=== PATIENT | female | born 1975 | race Caucasian/White ===

== ENCOUNTER 2020-09-05 11:33 | Emergency (ER) | payer BC, SELFPAY ==
--- NOTE | 2020-09-05 11:38 | PC.NURSE ---
V.O. from Dr. daily 4mg IV Morphine.
[2020-09-05 11:42] VITALS: BP 188/83; PULSE 88; RESP 18; TEMP 36.9; O2SAT 98; BMI 62.4
--- NOTE | 2020-09-05 11:47 | DI.RAD.S_ITS ---
PROCEDURE: XR CHEST 1V INDICATIONS: chest pain TECHNIQUE: One view of the chest was acquired. COMPARISON: [facility], CR, XR CHEST 2VW, 10/06/2015, 20:23. FINDINGS: Surgical changes and devices: None. Lungs and pleura: Lungs are clear. No pleural effusions or pneumothorax. Mediastinum: Mediastinal contours appear normal. Heart size is normal. Bones and chest wall: No suspicious bony lesions. Overlying soft tissues appear unremarkable. IMPRESSION: No acute cardiopulmonary disease. Dictated by: Katya Jacobs M.D. on 09/05/2020 at 12:03 Approved by: Katya Jacobs M.D. on 09/05/2020 at 12:04
--- NOTE | 2020-09-05 11:49 | ED.CHESTPAIN ---
HPI - Chest Pain General Chief Complaint: Chest Pain Stated Complaint: Sudden LUQ abd pain 15 minutes ago Time Seen by Provider: 09/05/20 11:49 Source: EMS Mode of arrival: EMS Limitations: no limitations History of Present Illness HPI narrative: Otherwise healthy 45-year-old woman presents with acute mid epigastric to right upper quadrant severe stabbing pain radiating through to her back and then across the entire upper abdomen and up into her chest and right shoulder. This was not associated with dyspnea, diaphoresis or nausea. She had her gallbladder approximately 10 years ago but states this does feel somewhat similar. She is not currently on any prescription medications. Medics gave her Zofran and 200 mcg of fentanyl with no relief of pain. 4 mg of IV morphine did bring the pain down to a tolerable level. She describes no recent fevers, cough, diarrhea, headaches. Related Data Previous Rx's Medication Instructions Recorded oxycodone-acetaminophen 1 tab PO Q6H PRN #14 tab 09/05/20 Allergies Allergy/AdvReac Type Severity Reaction Status Date / Time No Known Drug Allergies Allergy Verified 09/05/20 11:58 Review of Systems Review of Systems Narrative: Remainder of review of systems including constitutional, ENT, cardiovascular, respiratory, GI, , musculoskeletal, skin, neurologic and psychiatric systems reviewed and are unremarkable except as noted in HPI. Patient History Surgical History History of cholecystectomy Social History Smoking Status: Never smoker Smoking Status: Never smoker alcohol intake frequency: holidays/special occasions only Substance Use Type: does not use Exam Narrative Exam Narrative: General: Healthy appearing, in no acute distress. Able to give a complete and coherent history. Well-nourished well-developed HEENT: Moist mucous membranes, normal sclera with reactive pupils, Neck: No JVD, supple Respiratory: Lungs are clear to auscultation, no wheezing no rales no rhonchi. Full and symmetrical air movement Cardiac: Regular rate and rhythm no murmurs no bruits Abdomen: Soft, tender in the mid epigastrium without rebound or guarding, good bowel tones, no flank pain Skin: Warm and dry, no rashes Neurologic: Grossly neurologically intact with no obvious asymmetries or abnormalities Extremities: No trauma, well perfused Psych: Cooperative, appropriate insight and affect Initial Vital Signs Initial Vital Signs: Vital Signs Temperature 98.5 F 09/05/20 11:42 Pulse Rate 88 09/05/20 11:42 Respiratory Rate 18 09/05/20 11:42 Blood Pressure 188/83 H 09/05/20 11:42 Pulse Oximetry 98 09/05/20 11:42 Course Orders Ordered: ED Orders 09/05/20 11:34 Complete Blood Count AUTO DIFF Stat Comprehensive Metabolic Panel Stat Lipase Stat Partial Thromboplastin Time Stat Prothrombin Time INR Stat Troponin & CK Cardiac Panel Stat 09/05/20 11:47 XR chest 1V Stat EKG-12 Lead Stat 09/05/20 11:56 Test Urine Stat 09/05/20 12:14 CT abdomen pelvis w con Stat Discontinued Medications Al Hydrox/Mg Hydrox/Simethicone 20 ml/ Lidocaine HCl 15 ml 0 ml PO NOW ONE Stop: 09/05/20 12:10 Last Admin: 09/05/20 12:18 Dose: 35 ml Documented by: EL Morphine Sulfate (Morphine 4 Mg/Ml Inj) 4 mg IV NOW ONE Stop: 09/05/20 13:28 Last Admin: 09/05/20 13:30 Dose: 4 mg Documented by: EL Morphine Sulfate (Morphine 4 Mg/Ml Inj) 4 mg IV NOW ONE Stop: 09/05/20 13:31 Last Admin: 09/05/20 13:39 Dose: Not Given Documented by: EL Oxycodone/Acetaminophen (Oxycodone/Acetaminophen 5/325 Tablet) 1 tab PO NOW ONE Stop: 09/05/20 15:18 Pantoprazole Sodium (Pantoprazole 20 Mg Tablet) 20 mg PO NOW ONE Stop: 09/05/20 15:18 Vital Signs Vital signs: Vital Signs - 8 hr 09/05/20 11:42 09/05/20 13:15 09/05/20 14:48 Temperature 98.5 F Pulse Rate 88 64 65 Respiratory Rate 18 24 16 Blood Pressure 188/83 H 119/67 120/63 Pulse Oximetry 98 100 99 MDM - Chest Pain Medical Records Data Attestation: I reviewed the patient's medical records. Lab Data Attestation: I reviewed the patient's lab results. Result diagrams: 09/05/20 11:34 09/05/20 11:34 Labs: Lab Results 09/05/20 09/05/20 09/05/20 Range/Units 11:34 11:34 11:34 WBC 10.4 (4.5-11.0) X10^3/uL RBC 4.53 (4.0-5.2) X10^6/uL Hgb 13.8 (12.0-16.0) g/dL Hct 40.4 (36-46) % MCV 89.3 (80-100) fL MCH 30.6 (26-34) PG MCHC 34.2 (30-36) % RDW 12.8 (11.6-14.8) % Plt Count 343 (150-400) X10^3/uL Neut % (Auto) 66.8 (50-75) % Lymph % (Auto) 26.6 (25-40) % [place] % (Auto) 5.2 (3-14) % Eos % (Auto) 0.7 L (2-4) % Baso % (Auto) 0.7 (0-2) % Neut # (Auto) 6900 (8255-7971) /uL Lymph # (Auto) 2800 (1012-4458) /uL [place] # (Auto) 500 (0-900) /uL Eos # (Auto) 100 (0-450) /uL Baso # (Auto) 100 (0-100) /uL PT 12.4 (10.1-12.7) SECONDS INR 1.1 (0.9-1.3) APTT 33 (26.4-36.2) SECONDS Sodium 137 (137-145) mmol/L Potassium 4.3 (3.4-5.1) mmol/L Chloride 106 (98-107) mmol/L Carbon Dioxide 27 (22-32) mmol/L BUN 10 (7-17) mg/dL Creatinine 0.49 L (0.52-1.04) mg/dL Estimated GFR > 60.0 (>60) mL/min BUN/Creatinine Ratio 20.4 (6-22) Glucose 102 H (70-100) mg/dL Calcium 8.8 (8.4-10.2) mg/dL Total Bilirubin 0.5 (0.2-1.3) mg/dL AST 107 H (14-36) IU/L ALT 49 H (<35) IU/L Alkaline Phosphatase 76 (38-126) U/L Total Creatine Kinase 54 (30-135) U/L CK-MB (CK-2) TNP CK-MB (CK-2) Rel Index TNP Troponin I < 0.012 (0.01-0.034) ng/mL Total Protein 6.8 (6.3-8.2) g/dL Albumin 4.1 (3.5-5.0) g/dL Globulin 2.7 (1.7-4.1) g/dL Albumin/Globulin Ratio 1.5 (1.0-2.8) Lipase 139 (23-300) U/L Urine Test (Negative) 09/05/20 Range/Units 11:56 WBC (4.5-11.0) X10^3/uL RBC (4.0-5.2) X10^6/uL Hgb (12.0-16.0) g/dL Hct (36-46) % MCV (80-100) fL MCH (26-34) PG MCHC (30-36) % RDW (11.6-14.8) % Plt Count (150-400) X10^3/uL Neut % (Auto) (50-75) % Lymph % (Auto) (25-40) % [place] % (Auto) (3-14) % Eos % (Auto) (2-4) % Baso % (Auto) (0-2) % Neut # (Auto) (6862-9887) /uL Lymph # (Auto) (1418-2701) /uL [place] # (Auto) (0-900) /uL Eos # (Auto) (0-450) /uL Baso # (Auto) (0-100) /uL PT (10.1-12.7) SECONDS INR (0.9-1.3) APTT (26.4-36.2) SECONDS Sodium (137-145) mmol/L Potassium (3.4-5.1) mmol/L Chloride (98-107) mmol/L Carbon Dioxide (22-32) mmol/L BUN (7-17) mg/dL Creatinine (0.52-1.04) mg/dL Estimated GFR (>60) mL/min BUN/Creatinine Ratio (6-22) Glucose (70-100) mg/dL Calcium (8.4-10.2) mg/dL Total Bilirubin (0.2-1.3) mg/dL AST (14-36) IU/L ALT (<35) IU/L Alkaline Phosphatase (38-126) U/L Total Creatine Kinase (30-135) U/L CK-MB (CK-2) CK-MB (CK-2) Rel Index Troponin I (0.01-0.034) ng/mL Total Protein (6.3-8.2) g/dL Albumin (3.5-5.0) g/dL Globulin (1.7-4.1) g/dL Albumin/Globulin Ratio (1.0-2.8) Lipase (23-300) U/L Urine Test Negative (Negative) Urine Dip Bedside Urine Glucose Negative Bedside Urine Bilirubin - Negative Bedside Urine Ketone - Negative Urine Specific [place] 1.020 Bedside Urine Occult Blood +/- Bedside Urine pH 6.5 Bedside Urine Protein - Negative Bedside Urine Urobilinogen - Negative Bedside Urine Nitrite - Negative Bedside Urine Leukocytes - Negative Esterase Imaging Data CT scan - abdomen/pelvis: Radiologist's Impression: FINDINGS: Image quality: Excellent. ABDOMEN: Lung bases: Lung bases are clear. Heart size is normal. Solid organs: Liver is normal in size and enhancement. There is mild periportal edema. Gallbladder is surgically absent.. Biliary system is non dilated. Pancreas enhances normally. Spleen is normal in size and enhancement. No adrenal nodules. Kidneys demonstrate normal size and enhancement, without hydronephrosis. Peritoneum and bowel: Bowel loops demonstrate normal wall thickness and caliber. No free fluid or air. Nodes and vessels: No retroperitoneal or mesenteric adenopathy by size criteria. Aorta and inferior vena cava are normal in size. There are small perisplenic varicosities with a spontaneous splenorenal shunt. Miscellaneous: No ventral hernias. PELVIS: Genitourinary: Bladder wall thickness is normal. Miscellaneous: No inguinal hernias or adenopathy. Bones: No suspicious bony lesions. No vertebral body compression fractures. IMPRESSION: 1. Remote cholecystectomy. 2. Periportal edema, a nonspecific finding. 3. Small left upper quadrant perisplenic varicosities, with spontaneous splenorenal shunt. 4. No other significant findings. Dictated by: Renard Hunter M.D. on 09/05/2020 at 13:44 ECG Data Attestation: I personally reviewed and interpreted this ECG as follows: Interpretation: Normal EKG with sinus rhythm at a rate of 72 Normal axis, normal intervals No ischemic changes MDM Narrative Medical decision making narrative: 45-year-old woman with the acute onset severe epigastric pain radiating through to her back with essentially normal workup. Chest x-ray is unremarkable. CT scan does not suggest acute findings and labs are reassuring. GI cocktail was not effective for her. Most likely diagnosis at this point is still stomach related issues given the normal lipase and normal pancreas on CT. Will give her a brief course of narcotics to use for the next 1-2 days and have her start a proton pump inhibitor and follow-up with her primary care physician. She is safe for home discharge Discharge Plan Departure Patient Disposition: Home Clinical Impression: Acute epigastric pain Instructions: DI for Gastric Ulcer Activity Restrictions/Additional Instructions: Thank you for coming in today. On your workup I did not find any life-threatening issues. Specifically I found no signs of infection, series bleeding, kidney or liver failure. Your CT scan did not show any recurrent issues with your gallbladder area or gallstones, you did not have pancreatitis, you do not have a collection of fluid or abscess in your belly and there was no free air to suggest some part of your bowel leaking to cause problems. The most likely explanation at this point given the negative workup so far is either gastritis (irritation to the stomach lining) or an actual stomach ulcer. I am going to give you a prescription for pain medication to use for the next couple of days for the severe pain. I am also going to suggest that you start Prilosec 20 mg a day for the next 4 weeks to allow your stomach to be and heal itself. Please follow-up with a primary care provider with in the next 3-4 weeks. If your pain is not improving the next step in your workup would be to go to a door operator for an upper endoscopy, a scope to look into your stomach specifically. If you have fevers, increasing pain, vomiting blood, black or bloody stools you do need to return to the emergency department for further evaluation Prescriptions: New oxycodone-acetaminophen 5-325 mg tablet 1 tab PO Q6H PRN (Reason: pain) Qty: 14 RF: 0
[2020-09-05 11:57] LABS: Add Manual Diff / Slide Review NO; Basophils Absolute Auto 100 /uL (0-100); Basophils Percent Auto 0.7 % (0-2); Eosinophils Absolute Auto 100 /uL (0-450); Eosinophils Percent Auto 0.7 % (2-4); Hematocrit 40.4 % (36-46); Hemoglobin 13.8 g/dL (12.0-16.0); Lymphocytes Absolute Auto 2800 /uL (1100-4500); Lymphocytes Percent Auto 26.6 % (25-40); Mean Corpuscular HGB Conc 34.2 % (30-36); Mean Corpuscular Hemoglobin 30.6 PG (26-34); Mean Corpuscular Volume 89.3 fL (80-100); Monocytes Absolute Auto 500 /uL (0-900); Monocytes Percent Auto 5.2 % (3-14); Neutrophils Absolute Auto 6900 /uL (1500-7000); Neutrophils Percent Auto 66.8 % (50-75); Platelet Count 343 X10^3/uL (150-400); Red Blood Cell Count 4.53 X10^6/uL (4.0-5.2); Red Cell Distribution Width 12.8 % (11.6-14.8); White Blood Cell Count 10.4 X10^3/uL (4.5-11.0)
[2020-09-05] MEDS: MORPHINE 4 MG/ML INJ (11:59)
[2020-09-05 12:14] LABS: Creatine Kinase 54 U/L (30-135); HEMOLYSIS 42 (0-50)
--- NOTE | 2020-09-05 12:14 | DI.CT.S_ITS ---
PROCEDURE: CT ABDOMEN PELVIS W CON INDICATIONS: mid epigastric pain TECHNIQUE: After the administration of intravenous contrast, 5 mm thick sections acquired from the diaphragm to the symphysis. 5 mm coronal and sagittal reformats were acquired. For radiation dose reduction, the following was used: automated exposure control, adjustment of mA and/or kV according to patient size. COMPARISON: None. FINDINGS: Image quality: Excellent. ABDOMEN: Lung bases: Lung bases are clear. Heart size is normal. Solid organs: Liver is normal in size and enhancement. There is mild periportal edema. Gallbladder is surgically absent.. Biliary system is non dilated. Pancreas enhances normally. Spleen is normal in size and enhancement. No adrenal nodules. Kidneys demonstrate normal size and enhancement, without hydronephrosis. Peritoneum and bowel: Bowel loops demonstrate normal wall thickness and caliber. No free fluid or air. Nodes and vessels: No retroperitoneal or mesenteric adenopathy by size criteria. Aorta and inferior vena cava are normal in size. There are small perisplenic varicosities with a spontaneous splenorenal shunt. Miscellaneous: No ventral hernias. PELVIS: Genitourinary: Bladder wall thickness is normal. Miscellaneous: No inguinal hernias or adenopathy. Bones: No suspicious bony lesions. No vertebral body compression fractures. IMPRESSION: 1. Remote cholecystectomy. 2. Periportal edema, a nonspecific finding. 3. Small left upper quadrant perisplenic varicosities, with spontaneous splenorenal shunt. 4. No other significant findings. Dictated by: Renard Hunter M.D. on 09/05/2020 at 13:44 Approved by: Renard Hunter M.D. on 09/05/2020 at 13:50
[2020-09-05] MEDS: MAG HYDROX/ALUMINUM/SIMETH SUS 20 ML, LIDOCAINE VISCOUS 2% 15 ML PO (12:18)
[2020-09-05 12:26] LABS: Alanine Aminotransferase 49 IU/L (<35); Albumin 4.1 g/dL (3.5-5.0); Albumin Globulin Ratio 1.5 (1.0-2.8); Alkaline Phosphatase 76 U/L (38-126); Aspartate Aminotransferase 107 IU/L (14-36); BUN Creatinine Ratio 20.4 (6-22); Bilirubin Total 0.5 mg/dL (0.2-1.3); Blood Urea Nitrogen 10 mg/dL (7-17); Calcium 8.8 mg/dL (8.4-10.2); Carbon Dioxide 27 mmol/L (22-32); Chloride 106 mmol/L (98-107); Estimated Glomerular Filt Rate > 60.0 mL/min (>60); Globulin 2.7 g/dL (1.7-4.1); Glucose 102 mg/dL (70-100); Lipase 139 U/L (23-300); Potassium 4.3 mmol/L (3.4-5.1); Sodium 137 mmol/L (137-145); Total Protein 6.8 g/dL (6.3-8.2)
[2020-09-05 12:27] LABS: INR 1.1 (0.9-1.3); Prothrombin Time 12.4 SECONDS (10.1-12.7)
[2020-09-05 12:28] LABS: Troponin I < 0.012 ng/mL (0.01-0.034)
[2020-09-05 12:30] LABS: PTT Partial Thromboplastin Tim 33 SECONDS (26.4-36.2)
[2020-09-05 13:15] VITALS: BP 119/67; PULSE 64; RESP 24; O2SAT 100
[2020-09-05 13:15] LABS: Pregnancy Test Urine Negative (Negative)
[2020-09-05] MEDS: MORPHINE 4 MG/ML INJ IV (13:30)
[2020-09-05 14:48] VITALS: BP 120/63; PULSE 65; RESP 16; O2SAT 99
[2020-09-05] MEDS: OXYCODONE/ACETAMINOPHEN 5/325 TABLET 1 TAB PO (15:26)
[2020-09-05] MEDS: PANTOPRAZOLE 20 MG TABLET PO (15:26)
[2020-09-05 15:46] VITALS: BP 122/74; PULSE 85; RESP 14; O2SAT 100
== END 2020-09-05 16:02 | disposition home or self-care (01) ==
PROVIDERS: Emergency Provider Emergency Medicine
DX: R10.13 Epigastric pain (principal); R07.9 Chest pain, unspecified
CPT/HCPCS: 71045; 74177; 80053; 81003; 81025; 82550; 83690; 84484; 85025; 85610; 85730; 93005; 96374; 99284; J2270; Q9967

== ENCOUNTER → 2020-10-07 15:26 | Outpatient (CLI) | payer BC, SELFPAY ==
[2020-10-07 18:22] LABS: COVID19 -Nasal RAPID Negative (Negative)
== END ==
PROVIDERS: PCP Physician Assistant Medical; Visit Provider Physician Assistant
DX: Z01.812 Encounter for preprocedural laboratory examination (principal); Z20.822 Contact with and (suspected) exposure to COVID-19
CPT/HCPCS: 87635

== ENCOUNTER 2020-10-09 13:48 | Day surgery (SDC) | payer BC, SELFPAY ==
[2020-10-09] VITALS (7 sets, daily range): BP systolic 98–117; BP diastolic 54–75; PULSE 55–67; RESP 16–21; TEMP 36.5–36.8; O2SAT 98–100; BMI 27.3
--- NOTE | 2020-10-09 | PATH_ITS ---
[place] Accession Number: [id number] . 01 Material submitted: . PART A: gastrointestinal site - GASTRIC BIOPSIES PART B: small bowel - SMALL BOWEL BIOPSIES . 01 Clinical history: . EGD A: R/O H.PYLORI . 02 Diagnosis: A. Stomach, Biopsies: Antral and body-type mucosa with mild chronic gastritis. No evidence of Helicobacter on H/E stain. Negative for intestinal metaplasia. Negative for dysplasia or malignancy. . B. Small Bowel, Biopsies: Small bowel mucosa with no diagnostic abnormality. Negative for active inflammation, features of sprue, dysplasia and malignancy. [facility] 10/14/2020 1110 Local . 02 Comment: A. An immunohistochemical stain will be performed to evaluate for Helicobacter organisms and the results reported as an addendum. . 02 Electronically signed: . Mariaelena Mancilla MD, Pathologist NPI- [id number] . 01 Gross description: . A. Specimen A is received in formalin, labeled gastric and consists of three roberts-pink fragments of soft tissue, measuring 0.4 x 0.3 x 0.2 cm in aggregate. The specimen is entirely submitted in cassette A1. B. Specimen B is received in formalin, labeled small bowel and consists of four roberts fragments of soft tissue, measuring 1.0 x 0.8 x 0.2 cm in aggregate. The specimen is entirely submitted in cassette B1. ([id number]) /[facility] 10/10/2020 1654 Local . 02 Pathologist provided ICD-10: R10.13 . 02 CPT . 861067, 666108, [id number] Performed at: [address] [facility], [place], [place] [id number] MD Ld Hyman MD Phone: [phone] Performed at: 02 [facility] [id number] [place] [address] [id number] MD Mariaelena Mancilla MD Phone: [phone]
[2020-10-09] MEDS: SODIUM CHLORIDE 0.9% 1,000 ML 70 ML IV (14:40)
--- NOTE | 2020-10-09 14:57 | PM.HP.1 ---
History of Present Illness History of Present Illness Date Patient Seen: 10/09/20 Time Patient Seen: 14:55 Chief complaint: EGD Narrative: Patient is a very pleasant 45-year-old female who presented for upper endoscopy. She was seen on September 20, 2020 for upper abdominal pain. At that time she had had a sudden onset of abdominal pain she had gone to the emergency department for evaluation a CT scan of the abdomen pelvis was unremarkable. She has had persistent weight loss. Denies any other changes to her symptoms since that time. Patient History Surgical History History of cholecystectomy Family & Social History Social History: household members family Tobacco & Substance use: Smoking Status Never smoker alcohol intake current alcohol intake frequency holiday/special occasion Substance Use Type does not use Meds Home Medications and Allergies Home Medications Medication Instructions Recorded Confirmed Type ondansetron 4 mg PO QID PRN 10/09/20 10/09/20 History pantoprazole 40 mg PO DAILY 10/09/20 10/09/20 History Allergies Allergy/AdvReac Type Severity Reaction Status Date / Time No Known Drug Allergies Allergy Verified 09/05/20 11:58 Review of Systems Review of Systems ROS: Yes All systems reviewed with the patient and are negative except as otherwise documented Exam Vital Signs (past 8 hours): - 10/09/20 14:26 Temperature 97.9 F Pulse Rate 66 Respiratory Rate 18 Blood Pressure 106/69 Pulse Oximetry 98 Oxygen Delivery Method Room Air Const General: cooperative, healthy appearing, comfortable, well developed and well groomed Nutritional Appearance: average body habitus Orientation: alert, awake and oriented x3 HENMT Head: normocephalic and atraumatic Resp Effort & Inspection: normal respiratory effort and able to speak in complete sentences Auscultation: clear to auscultation bilaterally Cardio Rate: regular rate Rhythm: regular rhythm Heart Sounds: S1 normal and S2 normal GI Palpation: soft Auscultation: normal bowel sounds Extrem Right lower extremity: no edema Left lower extremity: no edema Assessment & Plan Assessment & Plan narrative: 1. Abdominal pain 2. Weight loss EGD today, further recommendations to follow
--- NOTE | 2020-10-09 15:18 | PM.OP.ENDO ---
Operative Date/Time/Diagnoses Date of procedure: 10/09/20 Time of procedure: 15:12 Procedure Notes Procedure in detail: Surgeon: Morena Martinez DO Procedure: Esophagogastroduodenoscopy with biopsy Preoperative diagnosis: 1. Upper abdominal pain 2. Weight loss Postoperative diagnosis: 1. Normal-appearing esophagus 2. Small hiatal hernia 3. Moderate amount of retained gastric contents 4. Mild gastritis in the antrum, biopsied to rule out H pylori 5. Normal-appearing small bowel, biopsied rule out celiac sprue Medications: Monitored anesthesia care, see Anesthesia note Preanesthesia Assessment An H and P was performed/updated and the Px?s ASA class is 2. The procedure was discussed in detail with the patient. The potential risks and complications including infection, bleeding, missed lesions, perforation, need for surgery in case of perforation, prolonged hospital stay, and were explained. A brief question and answer period was allotted and once all questions were answered, informed consent was obtained. The patient was brought back to the procedure room and placed on standard monitoring. The patient?s vital signs were monitored continuously throughout the entire procedure. Prior to starting, a timeout was performed to confirm the patient?s identity, allergies, medications, and procedure. Procedure in detail The patient was placed in left lateral decubitus position and a bite block was inserted. The tip of the upper endoscope was placed into the mouth and advanced without difficulty under direct visualization into the esophagus. Esophagus: Normal-appearing esophagus Stomach: Small hiatal hernia Moderate amount of retained gastric contents, liquid and some solid debris Mild gastritis in the antrum, biopsied to rule out H pylori Duodenum: Normal-appearing duodenum, biopsied to rule out celiac sprue The patient tolerated the procedure well and will be brought back to the recovery area to be discharged once criteria are met. Complications There were no complications and estimated blood loss was minimal. Recommendations: Resume previous diet Continue outPx medications Follow up pathology results Office follow up as previously scheduled An emergency contact number was given to the patient for any complications related to the procedure
--- NOTE | 2020-10-09 16:04 | SUR.PHASEII ---
Pt has met discharge criteria: VSS, denied pain or nausea, able to drink fluids without difficulty. Discharge instructions discussed with pt, all questions answered. Pt's ride called, he was out of the area, pt to be picked up in approximately 45 minutes. Will be transported via W\C to private vehicle.
== END 2020-10-09 16:05 | disposition home or self-care (01) ==
PROVIDERS: PCP Physician Assistant Medical; Referring Provider Physician Assistant Medical; Visit Provider Student in an Organized Health Care Education/Training Program
PROC: 0DJ08ZZ Inspection of Upper Intestinal Tract, Via Natural or Artificial Opening Endoscopic (ICD-10-PCS; CPT 43235; principal; 2020-10-09 15:00)
DX: K29.50 Unspecified chronic gastritis without bleeding (principal); K44.9 Diaphragmatic hernia without obstruction or gangrene
CPT/HCPCS: 43239; J2704

== ENCOUNTER → 2022-01-15 10:05 | Outpatient (CLI) | payer SELFPAY ==
--- NOTE | 2022-01-15 | DI.RAD.S_ITS ---
PROCEDURE: XR FINGER RT MIN 2V INDICATIONS: Contusion of right index finger without damage to nail, init TECHNIQUE: AP hand, 2 views of the 2nd finger(s) acquired. COMPARISON: None. FINDINGS: Bones: No fractures or dislocations. No suspicious bony lesions. Soft tissues: No suspicious soft tissue calcifications. IMPRESSION: Unremarkable hand and 2nd finger radiographs Approved by: William Vance M.D. on 01/15/2022 at 10:09
== END ==
PROVIDERS: PCP Physician Assistant Medical
DX: S60.021A Contusion of right index finger without damage to nail, initial encounter (principal); X58.XXXA Exposure to other specified factors, initial encounter
CPT/HCPCS: 73140